=== PATIENT | male | born 1955 | race Caucasian/White ===

== ENCOUNTER → 2019-05-01 | Outpatient (CLI) | payer MEDICARE | END | disposition home or self-care (01) | LOC: RAH 15:40 | PROVIDERS: ATTEND Surgery | DX: E29.1 Testicular hypofunction (principal) | CPT/HCPCS: 36415; 84403 ==

== ENCOUNTER 2022-04-30 10:48 | Emergency (ER) | payer MEDICARE ==
[~2022-04-30] VITALS: Ht 170.2 cm; Wt 88.9 kg
[2022-04-30 10:58] VITALS: BP 158/107
[2022-04-30] MEDS ORDERED: NYST15OI TP (11:27)
[2022-04-30] MEDS ORDERED: FLUCONAZOLE 100 MG TAB PO ONE (11:30)
== END 2022-04-30 11:45 | disposition home or self-care (01) ==
LOC: EDH 10:48
DX: B37.49 Other urogenital candidiasis (principal); I10 Essential (primary) hypertension; Z98.890 Other specified postprocedural states

== ENCOUNTER 2023-06-10 15:53 | Emergency (ER) | payer MEDICARE ==
[~2023-06-10] VITALS: Ht 170.2 cm; Wt 88.5 kg
[~2023-06-10 15:53] MED LIST: NYST15OI TP
[2023-06-10 16:15] VITALS: BP 158/114; PULSE 97; RESP 16
[2023-06-10 18:33] LABS: BASOPHILS # (AUTO) 0.05 K/uL (0.00-0.20); BASOPHILS % (AUTO) 0.5 % (0.0-5.0); EOSINOPHILS # (AUTO) 0.39 K/uL (0.00-0.70); EOSINOPHILS % (AUTO) 4.2 % (0.0-8.0); HEMATOCRIT 53.3 % (42-54); IMMATURE GRANULOCYTE ABSOLUTE 0.02 K/uL (0-1); LYMPHOCYTES # (AUTO) 1.5 K/uL (1.0-4.8); LYMPHOCYTES % (AUTO) 16.1 % (21.0-51.0); MEAN CORPUSCULAR HGB CONC 33.6 g/dL (32.0-36.0); MEAN CORPUSCULAR VOLUME 89.3 fL (79-99); MONOCYTES # (AUTO) 1.1 K/uL (0.1-1.0); MONOCYTES % (AUTO) 11.3 % (3.0-13.0); NEUTROPHILS # (AUTO) 6.3 K/uL (1.8-7.7); NEUTROPHILS % (AUTO) 67.7 % (40.0-77.0); PLATELET COUNT (AUTO) 184 K/uL (130-400); RED BLOOD CELL COUNT(AUTO) 5.97 MIL/uL (4.50-6.20); RED CELL DISTRIBUTION WIDTH 13.2 % (11.0-15.5); WHITE BLOOD COUNT (AUTO) 9.3 K/uL (4.8-10.8)
[2023-06-10 18:50] LABS: POTASSIUM 3.9 mmol/L (3.5-5.1)
[2023-06-10 18:55] LABS: ALBUMIN 3.6 g/dL (3.5-5.0); BILIRUBIN,TOTAL 0.5 mg/dL (0.2-1.0)
[2023-06-10] MEDS ORDERED: NYST15OI TP (19:10)
[2023-06-10] MEDS: FLUCONAZOLE 100 MG TAB PO ONE (19:19)
== END 2023-06-10 19:26 | disposition home or self-care (01) ==
LOC: EDH 15:53
DX: B37.89 Other sites of candidiasis (principal); I10 Essential (primary) hypertension; E78.00 Pure hypercholesterolemia, unspecified; M19.90 Unspecified osteoarthritis, unspecified site; K57.92 Diverticulitis of intestine, part unspecified, without perforation or abscess without bleeding; Z98.890 Other specified postprocedural states
CPT/HCPCS: 36415; 80053; 85025